=== PATIENT | male | born 1990 | race Two or more races ===

== ENCOUNTER 2020-07-08 03:41 | Emergency (ER) | payer OTHER ==
[~2020-07-08] VITALS: Ht 172.7 cm; Wt 80.0 kg
[2020-07-08] MEDS ORDERED: HYDROCODONE/ACETAMINOPHEN 10/325MG TABLET PO ONE (04:15)
[2020-07-08] MEDS ORDERED: IBUP-2029 MT (05:37)
[2020-07-08 05:48] VITALS: BP 136/78
== END 2020-07-08 05:52 | disposition home or self-care (01) ==
LOC: ER 03:41
DX: S93.401A Sprain of unspecified ligament of right ankle, initial encounter (principal); M54.5 Low back pain; Z98.890 Other specified postprocedural states; W01.0XXA Fall on same level from slipping, tripping and stumbling without subsequent striking against object, initial encounter; Y93.89 Activity, other specified; Y92.89 Other specified places as the place of occurrence of the external cause; Y99.8 Other external cause status
CPT/HCPCS: 72110; 73610; 73630; 99284